=== PATIENT | male | born 1965 | race Caucasian/White ===

== ENCOUNTER 2022-08-07 12:31 | Emergency (ER) | payer OTHER, SELFPAY ==
--- NOTE | ~2022-08-07 | XR_ITS ---
XR chest 2V 08/07/2022 13:05 Indication: Cough. Body aches. Procedure: 2 view chest Comparison: No prior studies for comparison. Findings: There are ill-defined infiltrates of the right upper and lower lung, consistent with pneumo syeda. Heart size normal. The lungs are hyperinflated which is consistent with, but not diagnostic of c hronic obstructive pulmonary disease. No acute osseous abnormality. Impression: 1: Patchy right infiltrates, compatible with pneumonia. Reviewed, dictated and finalized at location A. Impression: 1: Patchy right infiltrates, compatible with pneumonia.
[2022-08-07 12:40] VITALS: BP 142/79; PULSE 111; RESP 20; TEMP 36.4; O2SAT 94
--- NOTE | 2022-08-07 13:04 | ED.URI ---
HPI - URI/Sore Throat General Chief Complaint: Upper Respiratory Infection Stated Complaint: Body Aches/ Congestion/Headache Time Seen by Provider: 08/07/22 13:05 Source: patient and RN notes reviewed Mode of arrival: ambulatory Limitations: no limitations History of Present Illness HPI Narrative: 56-year-old male presented for complaint of nonproductive cough for 3 weeks, endorses sinus pressure and congestion, nausea and chills. He denies shortness of breath, wheezing, vomiting, diarrhea or fever. He is taking [id number]-yau-vuntyrz cold and flu medications. Denies sick contacts. Smokes 1PPD. MD elicited complaint: cough Related Data Allergies Allergy/AdvReac Type Severity Reaction Status Date / Time No Known Allergies Allergy Unverified 05/25/21 13:03 Review of Systems Review of Systems: CONSTITUTIONAL: denies malaise, sweats, fever EYES: Denies visual changes, redness, or discharge ENT: Reports rhinorrhea, congestion, sinus pain CARDIOVASCULAR: Denies chest pain, palpitations, edema RESPIRATORY: Reports cough, post nasal drainage. Denies dyspnea GASTROINTESTINAL: Denies abdominal pain, nausea, vomiting, diarrhea SKIN: Denies rash or itching MUSCULOSKELETAL: denies myalgia NEUROLOGIC: Denies headache PMFSH Social History Social History Smoking packs per day: 1.5 Smoking cigarettes per day: 30.0 Years smoked: 20 Smoking pack-years: 30.00 Smoking status: Current every day smoker Tobacco type: cigarettes Second hand tobacco smoke exposure: No Alcohol intake: never Substance use: never Gender identity (if verbalized by the patient): Male Exam Narrative: GENERAL: Ill-appearing, nontoxic EYES: conjunctivae clear ENT: Mucous membranes moist. TM unable to visualize bilaterally due to cerumen no tragal tenderness. Oropharynx erythematous without lesions or exudate, no drooling, no hoarseness, no trismus, uvula midline. NECK: Supple. No lymphadenopathy CHEST: Decreased sounds RLL, No wheezing, rhonchi, rales, or stridor. No respiratory distress, speaks in full sentences. HEART: Regular rate and rhythm. No murmur heard. SKIN: Warm, dry, no rash. NEURO: Alert and oriented x3. Course Course Emergency Course: Patient is aware of diagnosis, understands and agrees to treatment plan. Anticipatory guidance given. Patient agrees to follow-up as directed and is aware of reasons to seek care at the emergency department. Portions of this record may have been created with voice recognition software Level of Care: Express Care Visit Vital Signs Vital signs: Vital Signs Temperature 97.5 F L 08/07/22 12:40 Pulse Rate 111 H 08/07/22 12:40 Respiratory Rate 20 08/07/22 12:40 Blood Pressure 142/79 H 08/07/22 12:40 Pulse Oximetry 94 08/07/22 12:40 Oxygen Delivery Room Air 08/07/22 12:40 Temperature 97.5 F L 08/07/22 12:40 Pulse Rate 111 H 08/07/22 12:40 Respiratory Rate 20 08/07/22 12:40 Blood Pressure 142/79 H 08/07/22 12:40 Pulse Oximetry 94 08/07/22 12:40 Oxygen Delivery Room Air 08/07/22 12:40 reviewed MDM - URI/Sore Throat MDM Narrative Medical decision making narrative: Chest x-ray reviewed with patient. Advised supportive measures, reviewed Rxs and signs/symptoms to go to the ER. Pt is appropriate for outpt treatment and f/u. Differential Diagnosis Differential diagnosis: Likely upper respiratory infection, sinusitis and viral infection Imaging Data Radiologist's impression: Patient: Leonardo Dubois : 1965 MR#: [id number] Age/Sex: 56 / M Acct:[id number] Loc: [facility]? ? ADM Date: 08/07/22Attending Dr: Ordering Physician: Dilma Marcano APRN Date of Service: 08/07/22 Procedure(s): XR chest 2V Accession Number(s): [id number] cc: Steven Rush MD; Dilma Marcano APRN~ XR chest 2V 08/07/2022 13:05 Indication: Cough. Body aches. Procedure: 2 view chest Adrian
== END 2022-08-07 13:40 | disposition home or self-care (01) ==
PROVIDERS: Emergency Provider Nurse Practitioner Family; PCP Family Medicine
DX: J18.1 Lobar pneumonia, unspecified organism (principal); F17.210 Nicotine dependence, cigarettes, uncomplicated
CPT/HCPCS: 71046; 99213; G0463